=== PATIENT | female | born 1945 | race Two or more races ===

== ENCOUNTER 2017-10-30 06:37 | Day surgery (SDC) | payer MEDICARE, OTHER ==
[~2017-10-30] VITALS: Ht 157.5 cm; Wt 52.0 kg
[2017-10-30] VITALS (7 sets, daily range): BP systolic 126–190; BP diastolic 72–88; PULSE 70–88; RESP 18–20; TEMP 97.6–98.4; O2SAT 92–98
[2017-10-30] MEDS ORDERED: VITA1000 PO (07:39)
[2017-10-30] MEDS ORDERED: PROM25TA10 PO (07:39)
[2017-10-30] MEDS ORDERED: ATEN100T PO (07:39)
[2017-10-30] MEDS ORDERED: AMIT50TA3 PO (07:39)
[2017-10-30] MEDS ORDERED: BROV15NE NEB (07:39)
[2017-10-30] MEDS ORDERED: BACL10TA PO (07:39)
[2017-10-30] MEDS ORDERED: ALBUAER3 INH (07:39)
[2017-10-30] MEDS ORDERED: HYDR-3583 PO (07:39)
[2017-10-30] MEDS ORDERED: PHEN0.4T PO (07:39)
[2017-10-30] MEDS ORDERED: IPRA0.02 NEB (07:39)
[2017-10-30] MEDS ORDERED: BELL1TAB PO (07:39)
[2017-10-30] MEDS ORDERED: XANA1TAB2 PO (07:39)
[2017-10-30] MEDS ORDERED: SODIUM CHLOR 0.9% 1000 ML IV SCH (08:00)
[2017-10-30] MEDS ORDERED: MIDAZOLAM HCL 2 MG/2 ML VIAL ONE (08:18)
--- NOTE | 2017-10-30 09:22 | PD.RAD ---
Post CT Procedure Prog Note Pre Procedure Diagnosis: (1) Lung mass Post Procedure Diagnosis: (1) Lung mass Procedure Date: Oct 30, 2017 Supervising Radiologist: Parker Love Anesthesia: Conscious Sedation Plan of Activity Patient to Unit: [facility] Patient Condition: Good See PACS Report for procedural detail/treatment Parker Love MD Oct 30, 2017 09:22
--- NOTE | 2017-10-30 09:24 | RADRPT ---
EXAM DATE/TIME: 10/30/2017 08:23 [facility] COMPARISON: No previous studies available for comparison. INDICATIONS : History of multiple PET positive lung mass is in severe emphysematous bullous lung disease. Biopsy of a PET positive subpleural mass in the posterior right upper lobe has been requested for initial biop sy for diagnosis. SEDATION TIME: 30 minutes BIOPSY SITE: Right MEDICATION(S): 1.) 2 mg midazolam (Versed) IV 2.) 100 mcg fentanyl (Sublimaze) IV DEVICE(S): 1.) 20 gauge Bard MEDICAL HISTORY : Chronic obstructive pulmonary disease. SURGICAL HISTORY : None. ENCOUNTER: Initial ACUITY: 1 day PAIN SCORE: 0/10 LOCATION: Right chest A total of four core specimen(s) were obtained and sent to the laboratory for pathologic evaluation. PROCEDURE: 1. CT guided lung biopsy. 2. Conscious sedation with continuous EKG and oximetry monitoring. 3. EKG and oximetry remained stable throughout the procedure. Prior to the procedure informed consent was obtained. Any appropriate prior imaging studies were rev iewed. Using automated exposure control and adjustment of the mA and/or kV according to patient size, radiation dose was kept as low as reasonably achievable to obtain optimal diagnostic quality images. DICOM format image data is available electronically for review and comparison. The site was prepped in a sterile fashion. Full sterile technique was used, including cap, mask, staci rile gloves and gown and a large sterile sheet. Hand hygiene and 2% chlorhexidine and/or betadine/al cohol prep was utilized per protocol for cutaneous antisepsis. The skin and subcutaneous tissues wer e infiltrated with local anesthetic solution. With CT guidance the previously identified target was localized. Biopsy was performed using the pres ribed needle as above. In total, four 20 gauge biopsies were obtained. Adequate hemostasis was obtai caio with compression at the puncture site. Follow-up CT scan reveals no pneumothorax. Conscious sedation was performed with the prescribed dosages and duration as above in the presence of an independent trained radiology nurse to assist in the monitoring of the patient. EKG and oximetry remained stable throughout the procedure. The patient tolerated the procedure well and there were no complications. The patient was sent to Radiology Outpatient Unit in stable condition. CONCLUSION: 1. Uncomplicated CT-guided biopsy of subpleural right upper lobe lung mass. In total, four 20 gauge b iopsies were obtained. Parker Love MD on October 30, 2017 at 9:09 Board Certified Radiologist. This report was verified electronically.
[2017-10-30] MEDS ORDERED: oxyCODONE/ACETAMINOPHEN 5 MG/325 MG TAB PO PRN (09:30)
--- NOTE | 2017-10-30 11:09 | RADRPT ---
EXAM DATE/TIME: 10/30/2017 10:51 [facility] COMPARISON: No previous studies available for comparison. INDICATIONS : Post lung biopsy MEDICAL HISTORY : Chronic obstructive pulmonary disease. SURGICAL HISTORY : None. ENCOUNTER: Initial ACUITY: 1 day PAIN SCORE: 0/10 LOCATION: Right chest FINDINGS: A single frontal expiratory view of the chest was performed. There is no significant pneumothorax. Bi apical bullous emphysema and diffuse interstitial prominence again noted. Biopsied mass in the periph eral right upper lobe is demonstrated. Additional known lung masses are not as well-demonstrated on r adiograph. Mediastinal structures are in the midline. The cardio-mediastinal contours and bronchopulmonary markings are unremarkable for an expiratory exam . Osseous structures are intact. CONCLUSION: 1. No significant pneumothorax status post right lung mass biopsy. Parker Love MD on October 30, 2017 at 11:06 Board Certified Radiologist. This report was verified electronically.
== END 2017-10-30 12:54 | disposition home or self-care (01) ==
LOC: HRAD 06:37 → HRIP 06:44 → HRAD 12:54
PROVIDERS: ATTEND Internal Medicine Critical Care Medicine
DX: C34.91 Malignant neoplasm of unspecified part of right bronchus or lung (principal); J44.9 Chronic obstructive pulmonary disease, unspecified
CPT/HCPCS: 32405; 71045; 77012; 88305; 88313; 88341; 88342; J2250; J3010